=== PATIENT | female | born 1970 | race Caucasian/White ===

== ENCOUNTER 2021-10-25 11:45 | Emergency (ER) | payer MEDICAID ==
[~2021-10-25] VITALS: Ht 152.4 cm; Wt 82.7 kg
[~2021-10-25 11:45] MED LIST: LORA-269 PO; NO HOME MEDS
[2021-10-25 12:47] VITALS: BP 163/82
[2021-10-25 13:19] LABS: CLARITY,URINE CLEAR (Clear); COLOR,URINE YELLOW (Yellow); GLUCOSE, URINE NEGATIVE (Neg); KETONES,URINE NEGATIVE (Neg); LEUKOCYTE ESTERASE ,URINE NEGATIVE (Neg); NITRITES, URINE NEGATIVE (Neg); OCCULT BLOOD,URINE NEGATIVE (Neg); PH,URINE 6.5 (4.8-8.0); PROTEIN,URINE NEGATIVE (Neg); UA COLLECTION TYPE CLN CATCH MIDSTREAM; UROBILINOGEN,URINE 0.2 E.U/dL (0.2-1.0)
[2021-10-25 14:00] LABS: URINE HCG NEGATIVE (NEG)
[2021-10-25 14:09] LABS: BASOPHILS % (AUTO) 0.9 % (0-1); EOSINOPHILS # (AUTO) 0.1 X10'3 (0-0.9); EOSINOPHILS % (AUTO) 1.5 % (0-6); HEMATOCRIT 37.9 % (35.0-45.0); HEMOGLOBIN 12.8 g/dl (12.0-16.0); LYMPHOCYTES # (AUTO) 1.8 X10'3 (1.1-4.8); LYMPHOCYTES % (AUTO) 33.8 % (21-51); MEAN CORPUSCULAR HEMOGLOBIN 28.4 PG (27.0-31.0); MEAN CORPUSCULAR HGB CONC 33.7 g/dL (33.0-36.5); MEAN CORPUSCULAR VOLUME 84.2 FL (78-98); MEAN PLATELET VOLUME 7.2 FL (7.4-10.4); MONOCYTES # (AUTO) 0.5 X10'3 (0-0.9); MONOCYTES % (AUTO) 8.5 % (2-12); NEUTROPHILS % (AUTO) 55.3 % (42-75); PLATELET COUNT 268 X10'3 (140-440); RED CELL DISTRIBUTION WIDTH 13.9 % (11.5-14.5); WHITE BLOOD COUNT 5.4 X10'3 (4.5-11.0)
[2021-10-25] MEDS ORDERED: ketorolac trometh inj. 60 MG/2 ML VIAL IM ONE (14:15)
[2021-10-25 14:25] LABS: ALANINE AMINOTRANSFERASE 50 U/L (12-78); ALBUMIN 3.5 G/DL (3.4-5.0); ALBUMIN/GLOBULIN RATIO 0.9 (1.1-1.5); ALKALINE PHOSPHATASE 94 IU/L (46-116); ANION GAP 6 (8-16); ASPARTATE AMINO TRANSFERASE 32 U/L (10-37); BILIRUBIN,TOTAL 0.2 MG/DL (0.1-1.0); BLOOD UREA NITROGEN 6 MG/DL (7-18); CALCIUM 8.8 MG/DL (8.5-10.1); CHLORIDE 106 MMOL/L (99-107); GLUCOSE 94 MG/DL (70-104); POTASSIUM 3.6 MMOL/L (3.5-5.1); SODIUM 142 MMOL/L (135-145); TOTAL CARBON DIOXIDE 29.7 MMOL/L (24-32); TOTAL PROTEIN 7.2 G/DL (6.4-8.2); eGFR > 90 ML/MIN
[2021-10-25] MEDS ORDERED: ORPH100T2 PO (14:27)
[2021-10-25] MEDS ORDERED: LIDO700A32 TOP (14:27)
== END 2021-10-25 15:33 | disposition home or self-care (01) ==
LOC: ER 11:45
DX: M54.50 Low back pain, unspecified (principal)
CPT/HCPCS: 36415; 80053; 81003; 81025; 85025; 96372; 99283; J1885

== ENCOUNTER 2022-02-18 13:25 | Emergency (ER) | payer MEDICAID ==
[~2022-02-18] VITALS: Ht 152.4 cm; Wt 82.0 kg
[~2022-02-18 13:25] MED LIST changes: +LIDO700A32 TOP; +ORPH100T2 PO
[2022-02-18 15:09] LABS: BASOPHILS % (AUTO) 0.6 % (0-1); EOSINOPHILS # (AUTO) 0.1 X10'3 (0-0.9); EOSINOPHILS % (AUTO) 0.9 % (0-6); HEMATOCRIT 40.9 % (35.0-45.0); HEMOGLOBIN 13.9 g/dl (12.0-16.0); LYMPHOCYTES # (AUTO) 2.2 X10'3 (1.1-4.8); LYMPHOCYTES % (AUTO) 34.5 % (21-51); MEAN CORPUSCULAR HEMOGLOBIN 29.4 PG (27.0-31.0); MEAN CORPUSCULAR HGB CONC 33.9 g/dL (33.0-36.5); MEAN CORPUSCULAR VOLUME 86.6 FL (78-98); MEAN PLATELET VOLUME 7.2 FL (7.4-10.4); MONOCYTES # (AUTO) 0.5 X10'3 (0-0.9); MONOCYTES % (AUTO) 8.7 % (2-12); NEUTROPHILS # (AUTO) 3.5 X10'3 (1.8-7.7); NEUTROPHILS % (AUTO) 55.3 % (42-75); PLATELET COUNT 271 X10'3 (140-440); RED BLOOD COUNT 4.72 X10'6 (4.20-5.60); RED CELL DISTRIBUTION WIDTH 13.7 % (11.5-14.5); WHITE BLOOD COUNT 6.3 X10'3 (4.5-11.0)
[2022-02-18 15:19] LABS: D-DIMER 0.35 MG/L FEU (0-0.50)
[2022-02-18 15:24] LABS: ALANINE AMINOTRANSFERASE 56 U/L (12-78); ALBUMIN 3.9 G/DL (3.4-5.0); ALKALINE PHOSPHATASE 106 IU/L (46-116); ANION GAP 5 (8-16); ASPARTATE AMINO TRANSFERASE 33 U/L (10-37); BILIRUBIN,TOTAL 0.3 MG/DL (0.1-1.0); BLOOD UREA NITROGEN 8 MG/DL (7-18); C-REACTIVE PROTEIN 0.67 MG/DL (0.0-0.5); CALCIUM 9.2 MG/DL (8.5-10.1); CHLORIDE 102 MMOL/L (99-107); CREATININE 0.57 MG/DL (0.40-0.90); GLUCOSE 76 MG/DL (70-104); POTASSIUM 3.7 MMOL/L (3.5-5.1); SODIUM 138 MMOL/L (135-145); TOTAL CARBON DIOXIDE 31.1 MMOL/L (24-32); TOTAL PROTEIN 7.7 G/DL (6.4-8.2); eGFR > 90 ML/MIN
[2022-02-18] MEDS ORDERED: LIDOcaine 1% W/epiNEPHrine 1:100,000 20ml vial SQ ONE (15:55)
[2022-02-18] MEDS ORDERED: LIDOcaine 1% w/EPI 1:100,000 30ml vial (MDV) SQ ONE (16:00)
[2022-02-18 16:56] VITALS: BP 138/84
[2022-02-18 17:27] LABS: TOTAL PROTEIN,SYNOVIAL FLUID 4.4 GM/DL
[2022-02-18 18:16] LABS: APPEARANCE,SYNOVIAL FLUID HAZY; COLOR,SYNOVIAL FLUID YELLOW; CRYSTAL ID, SYN FLD CA PYROPHOSPHATE; SYN RBC 105 /CU MM (0); SYN WBC 238 /CU MM (0-200); SYNOVIAL FLUID CRYSTALS QT FEW
[2022-02-19 03:36] LABS: LYMPHOCYTES,SYNOVIAL FLUID 65 % (0-75); MONOCYTES,SYNOVIAL FLUID 15 % (0-0); NEUTROPHILS,SYNOVIAL FLUID 20 % (0-25)
== END 2022-02-18 16:59 | disposition home or self-care (01) ==
LOC: ER 13:25
DX: M25.462 Effusion, left knee (principal); F17.200 Nicotine dependence, unspecified, uncomplicated; Z88.5 Allergy status to narcotic agent
CPT/HCPCS: 20610; 36415; 73564; 80053; 84157; 85025; 85379; 85651; 86140; 89051; 89060; 99284; A6449

== ENCOUNTER 2022-03-13 17:42 | Emergency (ER) | payer MEDICAID | END 2022-03-13 20:00 | disposition left against medical advice (07) | LOC: ER 17:43 | DX: M25.569 Pain in unspecified knee (principal); Z53.21 Procedure and treatment not carried out due to patient leaving prior to being seen by health care provider ==

== ENCOUNTER 2023-05-17 17:48 | Emergency (ER) | payer MEDICAID, OTHER ==
[~2023-05-17] VITALS: Ht 149.9 cm; Wt 76.2 kg
[~2023-05-17 17:48] MED LIST changes: -ORPH100T2 PO; +ORPH100T4 PO
[2023-05-17 18:20] LABS: BASOPHILS % (AUTO) 0.7 % (0-1); EOSINOPHILS # (AUTO) 0.1 X10'3 (0-0.9); HEMATOCRIT 44.5 % (35.0-45.0); HEMOGLOBIN 15.2 g/dl (12.0-16.0); LYMPHOCYTES % (AUTO) 37.5 % (21-51); MEAN CORPUSCULAR HEMOGLOBIN 29.7 PG (27.0-31.0); MEAN CORPUSCULAR HGB CONC 34.2 g/dL (33.0-36.5); MEAN CORPUSCULAR VOLUME 86.8 FL (78-98); MEAN PLATELET VOLUME 7.4 FL (7.4-10.4); MONOCYTES # (AUTO) 0.4 X10'3 (0-0.9); MONOCYTES % (AUTO) 8.3 % (2-12); NEUTROPHILS # (AUTO) 2.8 X10'3 (1.8-7.7); NEUTROPHILS % (AUTO) 51.5 % (42-75); PLATELET COUNT 332 X10'3 (140-440); RED BLOOD COUNT 5.13 X10'6 (4.20-5.60); RED CELL DISTRIBUTION WIDTH 13.4 % (11.5-14.5); WHITE BLOOD COUNT 5.4 X10'3 (4.5-11.0)
[2023-05-17 18:40] LABS: ALBUMIN 3.9 G/DL (3.4-5.0); ANION GAP 9 (8-16); BLOOD UREA NITROGEN 11 MG/DL (7-18); BUN/CREATININE RATIO 15.7 (10.0-20.0); CALCIUM 9.4 MG/DL (8.5-10.1); CHLORIDE 104 MMOL/L (99-107); GLUCOSE 117 MG/DL (70-104); SODIUM 143 MMOL/L (135-145); TOTAL CARBON DIOXIDE 30.5 MMOL/L (24-32); eCRCL 65 ML/MIN; eGFR 88 ML/MIN
[2023-05-17 19:03] LABS: PRO BRAIN NATRIURETIC PEPTIDE < 30 PG/ML (0-125)
[2023-05-18] MEDS ORDERED: iohexol 350MG/ML 100ml bottle IV ONE (02:36)
[2023-05-18 02:43] LABS: D-DIMER 0.47 MG/L FEU (0-0.50)
[2023-05-18 03:11] VITALS: BP 133/68; PULSE 78; RESP 16; TEMP 98; O2SAT 95
== END 2023-05-18 03:14 | disposition home or self-care (01) ==
LOC: ER 17:49
DX: R06.02 Shortness of breath (principal); Z88.5 Allergy status to narcotic agent; Z79.899 Other long term (current) drug therapy
CPT/HCPCS: 36415; 71045; 80048; 83880; 84484; 85025; 85379; 93005; 99285; J3490; Q9967

== ENCOUNTER 2024-08-14 18:59 | Emergency (ER) | payer SELFPAY ==
[~2024-08-14] VITALS: Ht 177.8 cm; Wt 75.0 kg
[2024-08-14 19:24] VITALS: TEMP 97.6
[2024-08-14 19:44] LABS: BASOPHILS % (AUTO) 0.7 % (0-1); EOSINOPHILS # (AUTO) 0.1 X10'3 (0-0.9); EOSINOPHILS % (AUTO) 1.6 % (0-6); HEMATOCRIT 39.7 % (35.0-45.0); HEMOGLOBIN 13.5 g/dl (12.0-16.0); LYMPHOCYTES % (AUTO) 33.5 % (21-51); MEAN CORPUSCULAR HEMOGLOBIN 29.7 PG (27.0-31.0); MEAN CORPUSCULAR VOLUME 87.3 FL (78-98); MEAN PLATELET VOLUME 7.2 FL (7.4-10.4); MONOCYTES # (AUTO) 0.4 X10'3 (0-0.9); NEUTROPHILS # (AUTO) 3.5 X10'3 (1.8-7.7); NEUTROPHILS % (AUTO) 58.2 % (42-75); PLATELET COUNT 264 X10'3 (140-440); RED BLOOD COUNT 4.54 X10'6 (4.20-5.60); RED CELL DISTRIBUTION WIDTH 13.4 % (11.5-14.5)
[2024-08-14 20:00] LABS: ALANINE AMINOTRANSFERASE 54 U/L (12-78); ALBUMIN 3.7 G/DL (3.4-5.0); ALKALINE PHOSPHATASE 142 IU/L (46-116); ANION GAP 8 (8-16); ASPARTATE AMINO TRANSFERASE 29 U/L (10-37); BILIRUBIN,TOTAL 0.3 MG/DL (0.1-1.0); BLOOD UREA NITROGEN 7 MG/DL (7-18); BUN/CREATININE RATIO 11.7 (10.0-20.0); CALCIUM 8.7 MG/DL (8.5-10.1); CHLORIDE 102 MMOL/L (99-107); GLUCOSE 93 MG/DL (70-104); POTASSIUM 3.8 MMOL/L (3.5-5.1); SODIUM 141 MMOL/L (135-145); TOTAL CARBON DIOXIDE 30.9 MMOL/L (24-32); TOTAL PROTEIN 7.3 G/DL (6.4-8.2); eCRCL 119 ML/MIN; eGFR > 90 ML/MIN
[2024-08-14 20:08] LABS: PRO BRAIN NATRIURETIC PEPTIDE < 30 PG/ML (0-125)
[2024-08-14 20:24] VITALS: BP 125/87; PULSE 86; RESP 15; O2SAT 98
--- NOTE | 2024-08-14 20:34 | Physician Documentation ---
History of Present Illness ~ Chief Complaint: Anxiety Stated Complaint: CHEST PAIN Time Seen by MD: 20:21 Primary Medical Doctor: None HPI Patient is seen today with complaints of chest pain and history of panic attacks and anxiety. Patient is concerned about cardiac involvement today. Patient denies any shortness of breath or abdominal pain or nausea, vomiting, diarrhea or diaphoresis. Medication Reconciliation Allergies: Coded Allergies: morphine (Unverified Allergy, Unknown, BURNING, 02/18/22) Scheduled Lidocaine (Lidoderm), 1 PATCH TOP DAILY Lorazepam (Ativan), 1 TAB PO DAILY Scheduled PRN Orphenadrine Citrate (Norflex), 1 TAB PO Q12H PRN PRN for muscle spasms Miscellaneous Medications Home Med List (No Home Medications), (Reported) Past Medical History Past Medical History: No Pertinent History Past Surgical History: no surgical history Drug Use: none Lives In: Home Review of Systems Constitutional: Denies: chills, fever, weakness Eyes: Denies: pain, blurred vision ENT: Denies: ear pain, nose pain, throat pain, mouth pain Respiratory: Denies: cough, shortness of breath Cardiovascular: Denies: chest pain, palpitations Gastrointestinal: Denies: abdominal pain, nausea, vomiting Genitourinary: Denies: burning, dysuria Female Genitalia: Denies: vaginal discharge, pelvic pain Neurological: Denies: headache, dizziness Musculoskeletal: Denies: pain, swelling Integumentary: Denies: rash, lesions Allergic/Immunologic: Denies: hives, itching Hematologic/Lymphatic: Denies: no symptoms reported Psychiatric: Denies: depression, anxiety Physical Exam Vital Signs: Temperature: 97.6, Source: Temporal, Heart Rate: 86, Respiratory Rate: 15, BP: 125/87, Pulse Oximetry: 98, Weight: 75.000 Physical Exam General: Awake and Alert, no acute distress. HEENT: Conjunctiva pink, Sclera clear, Mucus Membranes moist. Neck: Supple without masses and tenderness. Resp: Unlabored. Lungs clear to auscultation bilaterally. Heart: Regular Rate and rhythm, normal S1 and S2 without murmur, rub or gallop. Abdomen: Soft and non tender no organomegaly Musculoskeletal: Patient has chest pain is not reproducible on exam. Patient describes her chest pain located in the right side of her chest/just superior to her breast. Extremities: No cyanosis,clubbing or edema. Skin: Warm and Dry. Progress Results/Orders Results/Orders Vital Signs 08/14/24 08/14/24 08/14/24 19:24 20:24 20:24 Temp 97.6 Pulse 88 86 Resp 15 15 B/P (MAP) 145/65 125/87 (100) Pulse Ox 99 98 99 O2 Delivery Room Air* O2 Flow Rate 0 FiO2 21 Laboratory Tests Test 08/14/24 19:22 White Blood Count 6.0 Red Blood Count 4.54 Hemoglobin 13.5 Hematocrit 39.7 Mean Corpuscular Volume 87.3 Mean Corpuscular Hemoglobin 29.7 Mean Corpuscular Hemoglobin Concent 34.0 Red Cell Distribution Width 13.4 Platelet Count 264 Mean Platelet Volume 7.2 L Neutrophils (%) (Auto) 58.2 Lymphocytes (%) (Auto) 33.5 Monocytes (%) (Auto) 6.0 Eosinophils (%) (Auto) 1.6 Basophils (%) (Auto) 0.7 Neutrophils # (Auto) 3.5 Lymphocytes # (Auto) 2.0 Monocytes # (Auto) 0.4 Eosinophils # (Auto) 0.1 Basophils # (Auto) 0.0 CBC Comment Sodium Level 141 Potassium Level 3.8 Chloride Level 102 Carbon Dioxide Level 30.9 Anion Gap 8 Blood Urea Nitrogen 7 Creatinine 0.60 Estimated GFR/1.73 m2 > 90 BUN/Creatinine Ratio 11.7 Glucose Level 93 Calcium Level 8.7 Total Bilirubin 0.3 Aspartate Amino Transf (AST/SGOT) 29 Alanine Aminotransferase (ALT/SGPT) 54 Alkaline Phosphatase 142 H Troponin I High Sensitivity < 4 L Troponin I High Sens Percent Delta Troponin I Hi Sens Absolute Change Pro-B-Type Natriuretic Peptide < 30 Total Protein 7.3 Albumin 3.7 Globulin 3.6 Albumin/Globulin Ratio 1.0 L Chemistry Comments Heart Score: Heart Score Response (Comments) Value History Slightly Suspicious 0 EKG Normal 0 Age 45-64 1 Risk Factors 1 or 2 risk factors 1 Troponin Normal limit 0 Total 2 Medical Decision Making Findings Patient is seen today with complaints of chest pain and history of panic attacks and anxiety. Patient is concerned about cardiac involvement today. Patient denies any shortness of breath or abdominal pain or nausea, vomiting, diarrhea or diaphoresis. Patient's labs and troponin were all unremarkable, with a heart score of two. Patient was given a dose of Ativan 2 mg by mouth in the ED today. Prescription of hydroxyzine 50 mg one tab by mouth twice a day as needed for anxiety sent to patient's pharmacy. Patient will return to ED with any worsening, concerning or changing symptoms. Patient will follow up with primary care in 2-5 days if no better as needed sooner. Departure Disposition: HOME / SELF CARE / HOMELESS Impression: Primary Impression: Anxiety Condition: Improved Discharge Instructions: Panic Attack Additional Instructions: Patient's labs and troponin were all unremarkable, with a heart score of two. Patient was given a dose of Ativan 2 mg by mouth in the ED today. Prescription of hydroxyzine 50 mg one tab by mouth twice a day as needed for anxiety sent to patient's pharmacy. Patient will return to ED with any worsening, concerning or changing symptoms. Patient will follow up with primary care in 2-5 days if no better as needed sooner. Referrals: NO PRIMARY CARE PROVIDER (PCP) Prescriptions Hydroxyzine Hcl* (Atarax*) 25 Mg Tablet 2 TAB PO BID for prn anxiety for 15 Days, #30 TAB Prov: JANICE LANDEROS 08/14/24 Signature Scribe Signature: No scribe Attestation: No scribe JANICE LANDEROS August 14, 2024 20:34
[2024-08-14] MEDS ORDERED: HYDR-3686 PO (20:37)
--- NOTE | 2024-08-14 20:46 | RADIOLOGY REPORT ---
Clinical History CP Comparison None Without Contrast JULIETA SHER, [id number] TECHNIQUE: AP view of the chest FINDINGS: No confluent airspace opacity to suggest pneumonia or alveolar edema. No pleural effusion or pneumothorax identified. Cardiomediastinal silhouette is within normal limits. Visualized osseous structures are grossly intact. IMPRESSION: No evidence of acute cardiopulmonary process. This report was electronically signed by Jack Araujo MD on 08/14/2024 8:43:52 PM.
[2024-08-14] MEDS: LORazepam 1 MG tablet PO STA (20:48)
--- NOTE | 2024-08-15 05:16 | ELECTROCARDIOGRAPH REPORT ---
[facility] Test Date: 2024-08-14 Test Time: 19:20:43 Pat Name: JULIETA SHER Department: EMERGENCY ROOM Patient ID: [id number] Room: Gender: F Line Welder: : 1970 Requested By: BLANCA SABA Order Number: [id number] Reading MD: Dr. Carlos A Hunt Measurements Intervals Marissa Rate: 90 P: 0 IA: 0 QRS: 84 QRSD: 94 T: 22 QT: 364 QTc: 446 Interpretive Statements Atrial flutter with varied AV block, Low voltage, precordial leads Electronically Signed On 08-15-2024 17:20:[address] Carlos A Hunt Please click the below link to view image of tracing.
== END 2024-08-14 20:49 | disposition home or self-care (01) ==
LOC: ER 19:00
DX: F41.9 Anxiety disorder, unspecified (principal); R07.9 Chest pain, unspecified; Z88.5 Allergy status to narcotic agent
CPT/HCPCS: 36415; 71045; 80053; 83880; 84484; 85025; 93005; 99285